=== PATIENT | female | born 1960 | race Caucasian/White ===

== ENCOUNTER → 2018-08-02 11:22 | Outpatient (CLI) | payer OTHER, SELFPAY ==
--- NOTE | 2018-08-02 | DI.RAD.S_ITS ---
PROCEDURE: XR KNEE LT 3V INDICATIONS: LEFT KNEE PAIN TECHNIQUE: 3 views of the knee were acquired. COMPARISON: None. FINDINGS: Bones: No fractures or dislocations. No suspicious bony lesions. Mild narrowing of the medial joint space. Soft tissues: Small joint effusion. No suspicious soft tissue calcifications. IMPRESSION: Mild degenerative joint disease Small joint effusion. Dictated by: Miki Campos M.D. on 08/02/2018 at 15:24 Approved by: Miki Campos M.D. on 08/02/2018 at 15:25
== END ==
PROVIDERS: Family Provider Family Medicine; PCP Family Medicine; Visit Provider Family Medicine
DX: M25.562 Pain in left knee (principal); M17.12 Unilateral primary osteoarthritis, left knee; M25.462 Effusion, left knee
CPT/HCPCS: 73562

== ENCOUNTER → 2018-10-24 11:49 | Outpatient (CLI) | payer OTHER, SELFPAY ==
--- NOTE | 2018-10-24 | DI.US.S_ITS ---
PROCEDURE: US ABDOMEN COMPLETE INDICATIONS: DIARRHEA TECHNIQUE: Real-time scanning was performed of the abdominal and retroperitoneal organs, with image documentation. COMPARISON: [facility], [place], ABDOMEN/PELVIS WITHOUT CONTRAS, 08/18/2015, 11:13. [facility], [place], ABDOMEN COMPLETE, 09/29/2015, 10:43. FINDINGS: Liver: Liver is prominent in size and homogeneous in echotexture. Gallbladder: No findings of gallstones or sludge are seen. The gallbladder wall is not thickened, measuring 3 mm or less. No specific pericholecystic fluid is seen. The sonographic Welsh sign is negative. Biliary ducts: Intrahepatic bile ducts are non-dilated. Extrahepatic bile duct caliber measures 5 mm. Normal is 6-7 mm or less in diameter, or 10 mm or less post-cholecystectomy. Pancreas: Visualized portions of the pancreas are sonographically normal. Spleen: Spleen is normal in size and homogeneous in echotexture. Kidneys: Kidneys are normal in size and echotexture. Right kidney measures 10.2 cm long; left kidney measures 10.4 cm long. No hydronephrosis or nephrolithiasis. No solid masses. The renal cortex measures within normal limits for thickness. Aorta: Visualized aorta is normal in caliber at less than 3 cm. Iliacs: Proximal common iliac arteries are normal in caliber at less than 2.5 cm. IVC: Intrahepatic inferior vena cava is patent. Miscellaneous: No free abdominal fluid. IMPRESSION: No significant ultrasound abnormality is seen. Mildly prominent liver. Dictated by: Kwaku Alvarez M.D. on 10/24/2018 at 14:11 Approved by: Kwaku Avlarez M.D. on 10/24/2018 at 14:13
== END ==
PROVIDERS: Family Provider Family Medicine; PCP Family Medicine; Visit Provider Family Medicine
DX: R19.7 Diarrhea, unspecified (principal); M81.0 Age-related osteoporosis without current pathological fracture; Z78.0 Asymptomatic menopausal state; Z87.891 Personal history of nicotine dependence; R16.0 Hepatomegaly, not elsewhere classified
CPT/HCPCS: 76700; 77080

== ENCOUNTER → 2019-04-23 07:48 | Outpatient (CLI) | payer OTHER, SELFPAY ==
--- NOTE | 2019-04-23 | DI.MG.S_ITS ---
BILATERAL DIGITAL SCREENING MAMMOGRAM 3D/2D WITH CAD: 04/23/2019 CLINICAL: Routine screening. Family history of breast cancer. Comparison is made to exams dated: 09/23/2017 mammogram, 06/25/2016 mammogram, and 11/04/2014 mammogram - [facility]. The tissue of both breasts is extremely dense, which lowers the sensitivity of mammography. Current study was also evaluated with a Computer Aided Detection (CAD) system. There are benign calcifications in both breasts. No significant masses, calcifications, or other findings are seen in either breast. There has been no significant interval change. IMPRESSION: There is no mammographic evidence of malignancy. A 1 year screening mammogram is recommended. This exam was interpreted at Station ID: [id number]. NOTE: For mammograms, a report in lay terms will be sent to the patient. Approximately 15% of breast malignancies will not be visualized mammographically. In the management of a palpable breast mass, a negative mammogram must not discourage biopsy of a clinically suspicious lesion. Electronically Signed By: Quoc zelaya/fito:04/23/2019 09:17:40 letter sent: Normal Exam ACR BI-RADS Category 2: Benign Finding(s) [id number]
== END ==
PROVIDERS: PCP Family Medicine; Visit Provider Family Medicine
DX: Z12.31 Encounter for screening mammogram for malignant neoplasm of breast (principal); Z80.3 Family history of malignant neoplasm of breast
CPT/HCPCS: 77063; 77067

== ENCOUNTER → 2020-08-25 08:39 | Outpatient (CLI) | payer OTHER, SELFPAY ==
--- NOTE | 2020-08-25 | DI.US.S_ITS ---
PROCEDURE: US ABDOMEN COMPLETE INDICATIONS: Other specified diseases of pancreas/ xr rt hip TECHNIQUE: Real-time scanning was performed of the abdominal and retroperitoneal organs, with image documentation. COMPARISON: [facility], [place], [place] ABDOMEN COMPLETE, 10/24/2018, 12:12. FINDINGS: Liver: Liver is normal in size and homogeneous in echotexture. Gallbladder: The gallbladder wall measures 2.5 mm in diameter. No stones, sludge, pericholecystic fluid, or sonographic Welsh sign. Biliary ducts: Intrahepatic bile ducts are non-dilated. Extrahepatic bile duct caliber measures 5.8 mm. Normal is 6-7 mm or less in diameter, or 10 mm or less post-cholecystectomy. Pancreas: Visualized portions of the pancreas are sonographically normal. Spleen: Spleen is normal in size and homogeneous in echotexture. Kidneys: Kidneys are normal in size and echotexture. Right kidney measures 9.6 cm long; left kidney measures 9.7 cm long. No hydronephrosis or nephrolithiasis. No solid masses. Aorta: Visualized aorta is normal in caliber at less than 3 cm. Atheromatous plaque is noted throughout the abdominal aorta. Iliacs: Proximal common iliac arteries are normal in caliber at less than 2.5 cm. IVC: Intrahepatic inferior vena cava is patent. Miscellaneous: No free abdominal fluid. IMPRESSION: 1. No cholelithiasis or findings to suggest choledocholithiasis or acute cholecystitis. Dictated by: Rere Ross M.D. on 08/25/2020 at 10:58 Approved by: Rere Ross M.D. on 08/25/2020 at 11:06
--- NOTE | 2020-08-25 | DI.RAD.S_ITS ---
PROCEDURE: XR HIP W PEL IF DONE RT 2V INDICATIONS: ELEVATED AMYLASE/ OSTEO TECHNIQUE: AP pelvis with lateral view(s) of the right hip(s). COMPARISON: [facility], [place], BONE SCAN WHOLE BODY, 10/07/2015, 14:55. [facility], [place], ABDOMEN/PELVIS WITHOUT CONTRAS, 08/18/2015, 11:13. [facility], , HIP 2V RIGHT, 08/18/2015, 11:07. FINDINGS: Bones: No fractures or dislocations. Compared to 2015 there is increased sclerosis and cystic change in the right femoral head. No subchondral collapse appreciated. Mild sclerosis of the right acetabulum compared to the left. Mild bilateral joint space narrowing of the hips. Pelvic ring appears intact. Moderate degenerative change of the pubic symphysis, similar to prior exam. No suspicious bony lesions. Soft tissues: The visualized bowel gas pattern is normal. No suspicious soft tissue calcifications. Mild heterotopic ossification inferior to the right greater trochanter. IMPRESSION: Increased sclerosis and cystic change of the right femoral head compared to 2015. This could be due to avascular necrosis. Infectious etiology cannot be excluded. Consider further evaluation with MRI or CT of the right hip for further characterization. Dictated by: John Chu M.D. on 08/25/2020 at 9:17 Approved by: John Chu M.D. on 08/25/2020 at 9:23
== END ==
PROVIDERS: PCP Family Medicine; Referring Provider Family Medicine; Visit Provider Family Medicine
DX: K86.89 Other specified diseases of pancreas (principal); M16.11 Unilateral primary osteoarthritis, right hip; R74.8 Abnormal levels of other serum enzymes
CPT/HCPCS: 73502; 76700

== ENCOUNTER → 2020-11-03 14:54 | Outpatient (CLI) | payer OTHER, SELFPAY ==
--- NOTE | 2020-11-03 | DI.MG.S_ITS ---
BILATERAL DIGITAL SCREENING MAMMOGRAM 3D/2D WITH CAD: 11/03/2020 CLINICAL: Routine screening. Family history of breast cancer. Comparison is made to exams dated: 04/23/2019 mammogram, 09/23/2017 mammogram, and 06/25/2016 mammogram - [facility]. The tissue of both breasts is extremely dense, which lowers the sensitivity of mammography. Current study was also evaluated with a Computer Aided Detection (CAD) system. There are benign calcifications in both breasts. No significant masses, calcifications, or other findings are seen in either breast. There has been no significant interval change. IMPRESSION: BENIGN There is no mammographic evidence of malignancy. A 1 year screening mammogram is recommended. This exam was interpreted at Station ID: [id number]. NOTE: For mammograms, a report in lay terms will be sent to the patient. Approximately 15% of breast malignancies will not be visualized mammographically. In the management of a palpable breast mass, a negative mammogram must not discourage biopsy of a clinically suspicious lesion. Electronically Signed By: Quoc zelaya/fito:11/03/2020 16:45:44 letter sent: Normal Exam ACR BI-RADS Category 2: Benign Finding(s) [id number]
== END ==
PROVIDERS: PCP Family Medicine; Referring Provider Family Medicine; Visit Provider Family Medicine
DX: Z12.31 Encounter for screening mammogram for malignant neoplasm of breast (principal); Z80.3 Family history of malignant neoplasm of breast; M81.0 Age-related osteoporosis without current pathological fracture; Z78.0 Asymptomatic menopausal state; Z82.62 Family history of osteoporosis; Z87.891 Personal history of nicotine dependence
CPT/HCPCS: 77063; 77067; 77080

== ENCOUNTER → 2021-01-30 08:04 | Outpatient (CLI) | payer OTHER, SELFPAY ==
--- NOTE | 2021-01-30 | DI.RAD.S_ITS ---
PROCEDURE: XR HIP W PEL IF DONE RT 2V INDICATIONS: OSTEOARTHRITIS OF HIP TECHNIQUE: AP pelvis with lateral view(s) of the right hip(s). COMPARISON: [facility], [place], HIP 2V RIGHT, 08/18/2015, 11:07. [facility], , XR HIP W PEL IF DONE RT 2V, 08/25/2020, 7:51. FINDINGS: Bones: No fractures or dislocations. Pelvic ring appears intact. Mild bilateral hip osteoarthritis. Subchondral lucencies and sclerosis noted in the right femoral head concerning for avascular necrosis. Soft tissues: The visualized bowel gas pattern is normal. No suspicious soft tissue calcifications. IMPRESSION: 1. Mild bilateral hip osteoarthritis. 2. Right femoral head chronic avascular necrosis. Dictated by: Lisa Dyer MD, PhD on 01/30/2021 at 16:57 Approved by: Lisa Dyer MD, PhD on 01/30/2021 at 17:00
== END ==
PROVIDERS: PCP Family Medicine; Referring Provider Family Medicine; Visit Provider Family Medicine
DX: M16.0 Bilateral primary osteoarthritis of hip (principal); M87.9 Osteonecrosis, unspecified
CPT/HCPCS: 73502

== ENCOUNTER 2021-06-02 18:34 | Emergency (ER) | payer OTHER, SELFPAY ==
[2021-06-02 18:42] VITALS: BP 193/88; PULSE 75; RESP 20; TEMP 36.6; O2SAT 100
--- NOTE | 2021-06-02 18:48 | DI.CT.S_ITS ---
PROCEDURE: CT HEAD/BRAIN WO CON INDICATIONS: fall TECHNIQUE: Noncontrast 4.5 mm thick angled axial sections acquired from the foramen magnum to the vertex, with coronal and sagittal reformats. For radiation dose reduction, the following was used: automated exposure control, adjustment of mA and/or kV according to patient size. COMPARISON: None. FINDINGS: Image quality: Excellent. CSF spaces: Basal cisterns are patent. No extra-axial fluid collections. Ventricles are normal in size and shape. Brain: No midline shift. No intracranial masses or hemorrhage. Carranza-white matter interface is normal. Skull and face: Calvarium and visualized facial bones are intact, without suspicious lesions. Sinuses: Visualized sinuses and mastoids are clear. IMPRESSION: No trauma found. Dictated by: Kevin Estrella M.D. on 06/02/2021 at 19:14 Approved by: Kevin Estrella M.D. on 06/02/2021 at 19:15
--- NOTE | 2021-06-02 18:48 | DI.CT.S_ITS ---
PROCEDURE: CT CERVICAL SPINE WO CON INDICATIONS: fall TECHNIQUE: Noncontrast 3 mm thick sections acquired from the skull base to the T4 level. Sagittal and coronal reformats were then constructed. For radiation dose reduction, the following was used: automated exposure control, adjustment of mA and/or kV according to patient size. COMPARISON: None. FINDINGS: Image quality: Excellent. Bones: No fractures or dislocations. Visualized superior ribs are intact. Soft tissues: Prevertebral soft tissues are normal in thickness. No paravertebral hematomas. No apical pneumothoraces. IMPRESSION: No trauma. Dictated by: Kevin Estrella M.D. on 06/02/2021 at 19:13 Approved by: Kevin Estrella M.D. on 06/02/2021 at 19:14
--- NOTE | 2021-06-02 20:14 | ED.FALL ---
HPI - Fall General Chief Complaint: Fall Stated Complaint: FELL OFF A RETAINING WALL, HIT HEAD ON SIDEWALK Time Seen by Provider: 06/02/21 19:37 Source: patient and family Mode of arrival: Ambulatory History of Present Illness HPI Narrative: 60-year-old woman with a history of hyperlipidemia was out doing yd work and fell backwards landing on her head from an approximate 8 ft retaining wall. No loss of consciousness but she was initially somewhat stunned and took a few minutes to get up off the ground. She was able to walk and did transport herself to the emergency department. She describes some point pain the right side of her head where there was some bleeding a but no specific headache or other specific pain. Related Data Home Medications Medication Instructions Recorded Confirmed ospemifene 60 mg tablet (Osphena) 60 mg PO #0 03/28/17 Previous Rx's Medication Instructions Recorded estradiol 10 mcg vaginal tablet 10 mcg VG Q DAY #30 tab 11/21/17 (Vagifem) C-Estriol 0.2% vaginal cream See Rx Instructions VAGINAL 04/22/21 .COMPLEX #30 gram Allergies Allergy/AdvReac Type Severity Reaction Status Date / Time Penicillins [PENICILLINS] AdvReac Intermediate nausea Unverified 01/25/18 11:59 Review of Systems Review of Systems Narrative: Pertinent positive and negative findings as per HPI Remainder of review of systems is otherwise unremarkable for Constitutional: Fevers, chills, weakness ENT: No sore throat, neck pain, ear pain CV: Chest pain, palpitations, Respiratory: Cough, wheeze, dyspnea GI: Nausea, vomiting, diarrhea, : Dysuria, hematuria, Patient History Surgical History (Updated 02/14/18 @ 05:33 by Conversion Provider) Status post delivery Social History Smoking Status: Never smoker Smoking Status: Never smoker Exam Narrative Exam Narrative: General: Healthy appearing, in no acute distress. Able to give a complete and coherent history. Well-nourished well-developed HEENT: Moist mucous membranes, normal sclera with reactive pupils, wound to the right occipital area 3 cm in length full-thickness without bone visible bleeding is controlled Neck: No JVD, supple, no midline tenderness Chest: No chest wall tenderness no clavicular tenderness no subcutaneous air Respiratory: Lungs are clear to auscultation, no wheezing no rales no rhonchi. Full and symmetrical air movement Cardiac: Regular rate and rhythm no murmurs no bruits Abdomen: Soft, nontender, good bowel tones, no flank pain Spine: No tenderness down the thoracic or lumbar spine. No tenderness with pelvic ring manipulation Skin: Warm and dry, no rashes Neurologic: Grossly neurologically intact with no obvious asymmetries or abnormalities Extremities: No trauma, well perfused Psych: Cooperative, appropriate insight and affect Initial Vital Signs Initial Vital Signs: Vital Signs Temperature 97.8 F 06/02/21 18:42 Pulse Rate 75 06/02/21 18:42 Respiratory Rate 20 06/02/21 18:42 Blood Pressure 193/88 H 06/02/21 18:42 Pulse Oximetry 100 06/02/21 18:42 Procedures Laceration Repair Right occipital scalp: Site: scalp Side (If applicable): right Size (cm): 7 Description: linear and clean Depth: simple, single layer Local Anesthetic: lidocaine 1% and with bicarb Amount of anesthesia used (mL): 10 Pre-repair: wound explored Skin layer closed with: uyen Number of sutures: 7 Course Orders Ordered: Discontinued Medications Lidocaine/Sodium Bicarbonate (Lido 1%/Sod Bicarb 8.4% (10ml) 10 Ml Syringe) 10 ml INJ NOW ONE Stop: 06/02/21 20:25 Last Admin: 06/02/21 20:27 Dose: 10 ml Documented by: DUSTIN Vital Signs Vital signs: Vital Signs - 8 hr 06/02/21 18:42 Temperature 97.8 F Pulse Rate 75 Respiratory Rate 20 Blood Pressure 193/88 H Pulse Oximetry 100 MDM - Fall Imaging Data CT scan - head: Radiologist's Impression: FINDINGS: Image quality: Excellent. CSF spaces: Basal cisterns are patent. No extra-axial fluid collections. Ventricles are normal in size and shape. Brain: No midline shift. No intracranial masses or hemorrhage. Carranza-white matter interface is normal. Skull and face: Calvarium and visualized facial bones are intact, without suspicious lesions. Sinuses: Visualized sinuses and mastoids are clear. IMPRESSION: No trauma found. Dictated by: Kevin Estrella M.D. on 06/02/2021 at 19:14 CT - cervical spine: Radiologist's Impression: FINDINGS: Image quality: Excellent. Bones: No fractures or dislocations. Visualized superior ribs are intact. Soft tissues: Prevertebral soft tissues are normal in thickness. No paravertebral hematomas. No apical pneumothoraces. IMPRESSION: No trauma. Dictated by: Kevin Estrella M.D. on 06/02/2021 at 19:13 Discharge Plan Departure Patient Disposition: Home Clinical Impression: Laceration Concussion Qualifiers: Encounter type: initial encounter Loss of consciousness presence/duration: without LOC Qualified Code(s): S06.0X0A - Concussion without loss of consciousness, initial encounter Fall Qualifiers: Encounter type: initial encounter Qualified Code(s): W19.XXXA - Unspecified fall, initial encounter Instructions: DI for Laceration Repair -- Uyen Activity Restrictions/Additional Instructions: Thank you for coming in tonight The CT scan of your head and her cervical spine were reassuring. There is no skull fractures, no cervical spine fractures and no bleeding inside her head. By definition without heart of a hit you do have a concussion. There are 5 uyen to the laceration on the right side of your head. These need to be removed on or about June 12. Please expect to hurt more all over over the next couple of days. If you find new areas of injury that we did not fully assess this evening, please feel free to return to the ER When you get home, please take a nice long shower to get all of the blood out of your hair. It is okay to get the staple line wet but I would not recommend shampoo tonight. Using 400 mg of ibuprofen (2 [id number] pills) and 1 Tylenol every 6 hours can be very helpful in controlling pain. I wish you the best Prescriptions: No Action ospemifene [Osphena] 60 MG tablet 60 mg PO Qty: 0 RF: 0 estradiol [Vagifem] 10 MCG tablet 10 mcg VG Q DAY Qty: 30 RF: 3 C-Estriol 0.2% vaginal cream See Rx Instructions Vaginal .COMPLEX Qty: 30 RF: 3 Referrals: Ludwin Ventura MD [Primary Care Provider] -
[2021-06-02] MEDS: LIDO 1%/SOD BICARB 8.4% (10ML) 10 ML SYRINGE INJ (20:27)
[2021-06-02 21:43] VITALS: BP 140/80
[2021-06-02 21:45] VITALS: PULSE 80; RESP 16; O2SAT 99
== END 2021-06-02 21:45 | disposition home or self-care (01) ==
PROVIDERS: Emergency Provider Emergency Medicine; PCP Family Medicine
DX: S06.0X0A Concussion without loss of consciousness, initial encounter (principal); S01.01XA Laceration without foreign body of scalp, initial encounter; W19.XXXA Unspecified fall, initial encounter
CPT/HCPCS: 12002; 70450; 72125; 99284

== ENCOUNTER → 2021-09-18 09:28 | Outpatient (CLI) | payer OTHER, SELFPAY ==
[2021-09-18 10:56] LABS: COVID19 -Nasal RAPID Negative (Negative)
== END ==
PROVIDERS: PCP Family Medicine; Visit Provider Surgery
DX: Z01.812 Encounter for preprocedural laboratory examination (principal); Z20.822 Contact with and (suspected) exposure to COVID-19
CPT/HCPCS: 87635; C9803

== ENCOUNTER 2021-09-21 09:29 | Day surgery (SDC) | payer OTHER, SELFPAY ==
[2021-09-21] VITALS (7 sets, daily range): BP systolic 99–137; BP diastolic 59–99; PULSE 57–66; RESP 10–16; TEMP 36–36.6; O2SAT 98–100; BMI 21.4
[2021-09-21] MEDS: LACTATED RINGERS 1,000 ML 200 ML IV (09:45)
--- NOTE | 2021-09-21 10:32 | PM.HP.1 ---
History of Present Illness History of Present Illness Date Patient Seen: 09/21/21 Time Patient Seen: 10:32 Chief complaint: SDC Narrative: The patient presents for colorectal screening. She had a previous colonoscopy 5 years ago which was normal. Her father of colon cancer. No personal history of colon cancer. She has had diarrhea for the past several years it is thought that she has pancreatic insufficiency perhaps. No nausea, vomiting, abdominal pain, loss of appetite, constipation, melena, hematochezia, or bright red blood per rectum. Patient History Surgical History Status post delivery Family & Social History Social History: household members spouse Tobacco & Substance use: Smoking Status Never smoker alcohol intake never Substance Use Type does not use Meds Home Medications and Allergies Home Medications Medication Instructions Recorded Confirmed Type estradiol 10 mcg vaginal tablet 10 mcg VG Q DAY #30 tab 11/21/17 Rx (Vagifem) sodium,potassium,mag sulfates 17.5 See Rx Instructions PO .COMPLEX 09/03/21 09/21/21 Rx gram-3.13 gram-1.6 gram oral soln #354 ml (Suprep Bowel Prep Kit) C-Estriol 0.2% vaginal cream See Rx Instructions VAGINAL 09/18/21 09/21/21 Rx .COMPLEX #30 gram rosuvastatin 5 mg tablet 5 mg PO BEDTIME 09/21/21 09/21/21 History Allergies Allergy/AdvReac Type Severity Reaction Status Date / Time bee venom protein (honey bee) Allergy Intermediate Hives Verified 09/21/21 09:40 Penicillins [PENICILLINS] AdvReac Intermediate nausea Verified 09/21/21 09:44 Exam Vital Signs (past 8 hours): - 09/21/21 09:50 Temperature 96.8 F L Pulse Rate 66 Respiratory Rate 16 Blood Pressure 135/99 H Pulse Oximetry 100 Oxygen Delivery Method Room Air Narrative Exam Narrative: Constitutional-She is oriented to person, place and time. No apparent distress Cardiovascular- regular rate, no peripheral edema Pulmonary-unlabored respiratory effort, no audible wheezing Abdominal-soft, non-tender, non-distended Musculoskeletal-no cyanosis or clubbing Neurological-nonfocal, normal strength throughout Skin-warm and dry Assessment & Plan Assessment and plan (1) Screening for colon cancer: Status: Acute Assessment & Plan narrative: The patient requires colorectal screening and colonoscopy is recommended. Technical details were discussed. Risks, benefits, alternatives explained. Risks including but not limited to myocardial infarction, aspiration, bleeding, pain, missed lesion, incomplete examination, need for further radiographic studies, colonic perforation, and need for major abdominal surgery were discussed. All questions were answered to their satisfaction, and they are in agreement with this plan. Time Spent With Patient Critical Care time: I spent a total of [] minutes of critical care time on this patient's care today; this time is exclusive of procedural time.
[2021-09-21] MEDS: fentaNYL 250 MCG/5 ML INJ IV (10:41)
[2021-09-21] MEDS: MIDAZOLAM 5 MG/5 ML VIAL IV (10:41)
--- NOTE | 2021-09-21 10:56 | P.OP.COLON_ITS ---
Operative Date/Time/Diagnoses Date of procedure: 09/21/21 Time of procedure: 10:56 Pre-op diagnosis: screening colonoscopy Post-op diagnosis: same Procedure & Clinicians Study performed: colonoscopy Same procedure as scheduled: Yes Indications: family history of colon cancer Surgeon: Denzel Don Procedure Notes Procedure in detail: Medications: Conscious sedation using 5mg IV midazolam and 150mcg IV of fentanyl The history and physical was performed/updated and the patient is ASA class is 2. The procedure was discussed in detail with the patient. Potential risks complications including infection, bleeding, missed diagnosis, perforation, need for surgery, and were explained. Their questions were answered and informed consent was obtained. Patient was brought to the procedure room and placed standard monitoring equip ment. The patient's vital signs were monitored continuously throughout the entire procedure. Prior to starting time-out was performed. The patient was placed in the left lateral recumbent position. Procedural sedation was administered. Examination began with a thorough inspection of the perianal area there was no evidence of fissures, fistulae, external hemorrhoids or cutaneous malignancy. The colonoscopy scope was then placed into the anal canal and was advanced to the cecum, which was identified by the ileocecal valve, the appendiceal orifice and the confluence of the taenia. The scope was then slowly withdrawn examining colon thoroughly in all directions, irrigating it of any residual stool. FINDINGS 1. No masses polyps or inflammation 2. Normal healthy-appearing colon The patient tolerated the procedure well. They will be discharged once criteria are met. The prep was of good/excellent quality. The withdrawl time was 7 minutes. The sedation time was 17 minutes. Specimen(s): none sent Complications: none Impression: Normal colonoscopy Post-procedure Recommendations: Colonoscopy in 5 years Disposition: same day surgery
== END 2021-09-21 11:55 | disposition home or self-care (01) ==
PROVIDERS: PCP Family Medicine; Referring Provider Surgery; Visit Provider Surgery
PROC: 0DJD8ZZ Inspection of Lower Intestinal Tract, Via Natural or Artificial Opening Endoscopic (ICD-10-PCS; CPT 45378; principal; 2021-09-21 10:45)
DX: Z12.11 Encounter for screening for malignant neoplasm of colon (principal)
CPT/HCPCS: 45378; 99152; J2250; J3010

== ENCOUNTER → 2022-08-07 08:56 | Outpatient (CLI) | payer OTHER, SELFPAY ==
--- NOTE | 2022-08-07 08:57 | DI.MG.S_ITS ---
BILATERAL DIGITAL SCREENING MAMMOGRAM 3D/2D WITH CAD: 08/07/2022 CLINICAL: Routine screening. Family history of breast cancer. Comparison is made to exams dated: 11/03/2020 mammogram, 04/23/2019 mammogram, and 09/23/2017 mammogram - [facility]. Both breasts are extremely dense, which lowers the sensitivity of mammography (category d />75% glandular tissue). Current study was also evaluated with a Computer Aided Detection (CAD) system. There are benign calcifications in both breasts. No significant masses, calcifications, or other findings are seen in either breast. There has been no significant interval change. IMPRESSION: BENIGN There is no mammographic evidence of malignancy. A 1 year screening mammogram is recommended. Based on Tyrer-Cuzick model (a risk assessment model), the patient's lifetime risk is 41.5% and her 10 year risk is 18.1%. If a patient has an elevated risk, a more comprehensive evaluation should be considered and/or a referral to a genetic counselor. The [place] [employer], [place] [employer], and NCCN Guidelines advise the consideration of Breast MRI as an adjunct to screening mammography in patients whose Lifetime risk to develop breast cancer is 20% or higher. This exam was interpreted at Station ID: [id number]. NOTE: For mammograms, a report in lay terms will be sent to the patient. Approximately 15% of breast malignancies will not be visualized mammographically. In the management of a palpable breast mass, a negative mammogram must not discourage biopsy of a clinically suspicious lesion. Electronically Signed By: Quoc zelaya/fito:08/09/2022 16:59:15 letter sent: Normal Exam ACR BI-RADS Category 2: Benign Finding(s) [id number]
== END ==
PROVIDERS: PCP Family Medicine; Referring Provider Family Medicine; Visit Provider Family Medicine
DX: Z12.31 Encounter for screening mammogram for malignant neoplasm of breast (principal); Z80.3 Family history of malignant neoplasm of breast
CPT/HCPCS: 77063; 77067

== ENCOUNTER → 2023-01-05 18:34 | Outpatient (CLI) | payer OTHER, SELFPAY ==
--- NOTE | 2023-01-05 | DI.MRI.S_ITS ---
PROCEDURE: MR KNEE RT WO CON INDICATIONS: RIGHT KNEE AND HIP PAIN TECHNIQUE: Noncontrast sagittal PD fast spin echo and T2 fast spin echo with fat saturation, sagittal 3-D FLASH with fat saturation; coronal T1 spin echo and PD fast spin echo with fat saturation, and axial PD fast spin echo with fat saturation through the knee. COMPARISON: None. FINDINGS: Image quality: Excellent. Menisci: There is mild amorphous high signal intensity within the middle and inner thirds of the medial meniscal body, demonstrating superior and inferior articular surface extension, indicating degenerative fraying. Linear horizontal high T2 signal intensity within the inner and middle thirds of the lateral meniscal body and posterior horn, demonstrating inferior articular surface extension is present. Cruciate ligaments: The anterior and posterior cruciate ligaments appear intact. Medial structures: The medial collateral ligament appears intact. Visualized portions of the pes anserinus tendons appear normal. No abnormal bursal fluid. Lateral structures: The lateral collateral ligament, long and short heads of the biceps femoris tendon appear intact. The popliteus tendon appears normal. Iliotibial band appears normal. Anterior structures: The quadriceps and patellar tendons appear intact. There is mild T2 signal elevation within the quadriceps and patellar tendons at the patellar insertion sites. Patellar alignment is normal. No femoral trochlear dysplasia or ventral trochlear prominence. No edema in the infrapatellar fat pad. Bones and cartilage: No bone marrow contusions or fractures. Mild ill-defined T2 signal elevation within the central aspect of the distal femur, the central tibial plateau, as well as the medial patellar apex, consistent with degenerative marrow edema. There is moderate articular cartilage loss diffusely overlying the weight-bearing aspects of the medial femoral condyle and medial tibial plateau. Mild articular cartilage loss overlies the medial and lateral patellar facets. Superimposed high-grade articular cartilage loss overlies the medial patellar apex. Joint space: There is a small knee joint effusion. No Alan's cyst. Normal appearing synovial plicae are incidentally noted. IMPRESSION: 1. Tricompartmental osteoarthritis with associated articular cartilage loss. 2. Medial and lateral meniscal tearing. 3. Mild quadriceps and patellar tendinopathy. 4. Small knee joint effusion. Dictated by: Nate Moore M.D. on 01/06/2023 at 9:19 Approved by: Nate Moore M.D. on 01/06/2023 at 9:21
--- NOTE | 2023-01-05 | DI.MRI.S_ITS ---
PROCEDURE: MR HIP RT WO CON INDICATIONS: RIGHT KNEE AND HIP PAIN TECHNIQUE: Noncontrast coronal T1 spin echo and STIR through the bony pelvis. Coronal and axial T2 fast spin echo with fat saturation, sagittal T1 spin echo, and oblique axial T2 fast spin echo with fat saturation through the hip. COMPARISON: CR, XR HIP W PEL IF DONE RT 2V, 08/25/2020, 7:51. [facility], MR, HIP WITHOUT CONTRAST, 07/12/2013, 8:00. FINDINGS: Image quality: Excellent. Bones and joints: A vascular necrosis within the right femoral head is present, as before, slightly increased in size, and demonstrating a more cystic appearance, measuring roughly 33 mm craniocaudal by 25 mm transverse. No significant subchondral collapse left femoral head is within normal limits. There is mild ill-defined T2 signal elevation within the bilateral iliac wings posteriorly adjacent to the sacroiliac joints.. The visualized lower lumbar spine appears normally aligned. Tendons and ligaments: The gluteus medius and minimus tendons appear intact, without associated muscle atrophy. Mild T2 signal elevation at the femoral insertion sites of the left gluteus medius and minimus tendons. The nearby proximal iliotibial band also appears intact. The iliopsoas tendon appears intact, without adjacent bursal fluid collections or evidence for impingement syndrome. The origin of the hamstring tendon is intact at the ischial tuberosity, as well as the associated sacrotuberous ligament. The straight and reflected heads of the rectus femoris muscle origin appear intact, as well as the conjoint tendon. The ligamentum teres appears intact where visualized. Labrum and cartilage: Diffuse undercutting of the left hip labrum. Cartilage surface of the femoral head appears of normal thickness. The alpha angle of the femur is within normal limits at less than 55 degrees. Soft tissues: Visualized muscles demonstrate normal bulk and internal signal. Quadratus femoris muscle demonstrates no internal edema to suggest ischiofemoral impingement. The proximal sciatic neurovascular bundle appears normal adjacent to the hamstring tendons. No free pelvic fluid. Bladder wall thickness is normal. Genitourinary structures and bowel loops appear normal where visualized. IMPRESSION: 1. Progressive right femoral head avascular necrosis. 2. Left hip labral tearing. 3. Insertional tendinitis of the left gluteus medius and minimus tendons. 4. Suboptimally visualized STIR signal elevation within the posterior iliac wings, possibly secondary to sacroiliitis. Dictated by: Nate Moore M.D. on 01/06/2023 at 8:50 Approved by: Nate Moore M.D. on 01/06/2023 at 8:53
== END ==
PROVIDERS: PCP Family Medicine; Referring Provider Family Medicine; Visit Provider Family Medicine
DX: M23.51 Chronic instability of knee, right knee (principal); S73.102A Unspecified sprain of left hip, initial encounter; M76.02 Gluteal tendinitis, left hip; M87.852 Other osteonecrosis, left femur; M17.12 Unilateral primary osteoarthritis, left knee; S83.242A Other tear of medial meniscus, current injury, left knee, initial encounter; S83.282A Other tear of lateral meniscus, current injury, left knee, initial encounter; M25.462 Effusion, left knee
CPT/HCPCS: 73721

== ENCOUNTER → 2023-09-22 14:56 | Outpatient (CLI) | payer OTHER, SELFPAY ==
--- NOTE | 2023-09-22 | DI.US.S_ITS ---
PROCEDURE: US PELVIC COMPLETE INDICATIONS: ABDOMINAL PAIN;OVARIAN CYST TECHNIQUE: Real-time scanning was performed of the pelvic organs, with image documentation. Additional endovaginal scanning was necessary due to incomplete visualization of the adnexal and endometrial structures by transabdominal scanning. COMPARISON: [facility], US, PELVIC COMPLETE, 06/25/2016, 8:09. FINDINGS: Uterus: Uterus is anteverted and normal in size at 8.3 x 4.7 x 2.9 cm. The myometrium is heterogeneous. The endometrium measures 2 mm combined thickness. Ovaries: The right ovary measures 1.7 x 1.8 x 0.9 cm, with a calculated ovarian volume of 1.4 cc. The left ovary measures 2.4 x 2.2 x 1.6 cm, with a calculated ovarian volume of 4.4 cc. The ovaries have a normal sonographic appearance. Less than 12 follicles can be seen in each ovary. No adnexal masses are seen. There is a simple 1.4 x 1.2 x 1.4 cm cyst within the left ovary. Other: No pathologic free abdominal or pelvic fluid. IMPRESSION: 1. Left ovarian cyst. Annual sonographic follow-up is recommended for cysts greater than 1 cm in postmenopausal patients. We strive to produce accurate, complete, and clear reports of imaging services. To assist us in improving patient care, this report was composed using standard report templates and voice recognition software. Therefore, it may contain abnormal punctuation, insertions and/or omissions. Occasional wrong-word or sound-alike substitutions may occur. Though we review the report and make efforts to correct it, we do recommend that the report be read carefully in proper context to recognize any text inaccuracies. Dictated by: Rere Ross M.D. on 09/22/2023 at 18:02 Approved by: Rere Ross M.D. on 09/22/2023 at 18:05
--- NOTE | 2023-09-22 | DI.US.S_ITS ---
PROCEDURE: US ABDOMEN LIMITED INDICATIONS: ABDOMINAL PAIN;OVARIAN CYST TECHNIQUE: Real-time scanning was performed of the abdominal and retroperitoneal organs, with image documentation. COMPARISON: [facility], US, US PELVIC COMPLETE, 09/22/2023, 15:49. [facility], US, US ABDOMEN COMPLETE, 08/25/2020, 9:58. FINDINGS: Liver: The liver measures 14.9 cm in length and demonstrates slightly increased echogenicity. The portal vein is patent. Gallbladder: The gallbladder wall measures 2 mm in diameter and is slightly contracted. No stones, sludge, pericholecystic fluid, or sonographic Welsh sign. Biliary ducts: Intrahepatic bile ducts are non-dilated. Extrahepatic bile duct caliber measures 3 mm. Normal is 6-7 mm or less in diameter, or 10 mm or less post-cholecystectomy. Pancreas: Visualized portions of the pancreas are sonographically normal. IMPRESSION: 1. Increased hepatic echogenicity noted likely related to fatty infiltration of the liver but other sources of hepatocellular disease cannot be excluded. 2. No cholelithiasis or findings to suggest choledocholithiasis or acute cholecystitis. Dictated by: Rere Ross M.D. on 09/22/2023 at 17:43 Approved by: Rere Ross M.D. on 09/22/2023 at 17:44
== END ==
PROVIDERS: PCP Family Medicine; Referring Provider Family Medicine; Visit Provider Family Medicine
DX: R10.9 Unspecified abdominal pain (principal); K86.89 Other specified diseases of pancreas; N83.202 Unspecified ovarian cyst, left side
CPT/HCPCS: 76705; 76856

== ENCOUNTER → 2023-10-18 07:51 | Outpatient (CLI) | payer OTHER, SELFPAY ==
--- NOTE | 2023-10-18 | DI.MG.S_ITS ---
BILATERAL DIGITAL SCREENING MAMMOGRAM 3D/2D WITH CAD: 10/18/2023 CLINICAL: Routine screening. Family history of breast cancer. Comparison is made to exams dated: 08/07/2022 mammogram, 11/03/2020 mammogram, and 04/23/2019 mammogram - [facility]. Both breasts are heterogeneously dense, which may obscure small masses (category c / 51-75% glandular tissue). Current study was also evaluated with a Computer Aided Detection (CAD) system. No significant masses, calcifications, or other findings are seen in either breast. There has been no significant interval change. IMPRESSION: NEGATIVE There is no mammographic evidence of malignancy. A 1 year screening mammogram is recommended. Based on Tyrer-Cuzick model (a risk assessment model), the patient's lifetime risk is 28.5% and her 10 year risk is 12.7%. If a patient has an elevated risk, a more comprehensive evaluation should be considered and/or a referral to a genetic counselor. The [employer] [employer], [employer], and NCCN Guidelines advise the consideration of Breast MRI as an adjunct to screening mammography in patients whose Lifetime risk to develop breast cancer is 20% or higher. This exam was interpreted at Station ID: [id number]. NOTE: For mammograms, a report in lay terms will be sent to the patient. Approximately 15% of breast malignancies will not be visualized mammographically. In the management of a palpable breast mass, a negative mammogram must not discourage biopsy of a clinically suspicious lesion. Electronically Signed By: Zaira chandra/fito:10/18/2023 10:24:19 letter sent: Normal Exam ACR BI-RADS Category 1: Negative [id number]
== END ==
PROVIDERS: PCP Family Medicine; Referring Provider Family Medicine; Visit Provider Family Medicine
DX: Z12.31 Encounter for screening mammogram for malignant neoplasm of breast (principal); Z80.3 Family history of malignant neoplasm of breast
CPT/HCPCS: 77063; 77067

== ENCOUNTER 2024-09-22 16:59 | Emergency (ER) | payer OTHER, SELFPAY ==
[2024-09-22 17:01] VITALS: BP 132/79; PULSE 83; RESP 16; TEMP 36.7; O2SAT 100; BMI 21.2
--- NOTE | 2024-09-22 17:14 | ED_ITS ---
<Statement entered by Shane Ko, DO - 09/22/24 19:18> Dr. Ko: I was immediately available in the department for consultation. Documentation has been reviewed. I agree with assessment and plan. HPI - Extremity Injury (Lower) General Chief Complaint: Extremity Injury, Lower Stated Complaint: severe ankle pain Time Seen by Provider: 09/22/24 17:14 History of Present Illness HPI Narrative: Ms. White is a pleasant 64-year-old female with a past medical history of hyperlipidemia who presents to the emergency department for acute medial right ankle pain that occurred approximately 2 hours prior to arrival. patient states she was working on her truck when she developed medial right ankle pain suddenly while standing. Denies history of ankle pain or ankle problems. Denies any rolling or crushing injury. States that she now has severe pain on the medial aspect of the right ankle and also the base of the right foot. She took a 5 mg hydrocodone-acetaminophen prior to arrival which did not improve her pain. States that the pain is continuing to get worse. Pain did not improve with heat or ice therapy. Denies fevers, chills, leg pain, calf pain, direct injury, color change of foot, history of DVTs. Related Data Home Medications Medication Instructions Recorded Confirmed rosuvastatin 5 mg tablet 5 mg PO BEDTIME 09/21/21 11/17/21 Previous Rx's Medication Instructions Recorded CMP Estriol 0.2% vaginal cream See Rx Instructions vaginal 11/17/21 .COMPLEX #30 grams Allergies Allergy/AdvReac Type Severity Reaction Status Date / Time bee venom protein (honey bee) Allergy Intermediate Hives Verified 11/17/21 16:35 Penicillins [PENICILLINS] AdvReac Intermediate nausea Verified 11/17/21 16:35 Review of Systems Review of Systems ROS Unobtainable: All systems reviewed & are unremarkable except as noted in HPI and below Patient History Surgical History Anesthesia History of hand surgery (~2020) Status post delivery Family History Father Cancer Brother Cancer Social History household members: spouse Smoking Status: Never smoker alcohol intake: never Smoking Status: Never smoker Exam Narrative Exam Narrative: GENERAL: 64 year old patient appears stated age. Well-developed patient, in mild distress sitting in wheelchair. HEAD: Atraumatic. Normocephalic. EYES: Extraocular motions intact. No scleral icterus. No injection or drainage. ENT: Nose without bleeding, purulent drainage. NECK: Trachea midline. Cervical ROM intact. CARDIOVASCULAR: Regular rate RESPIRATORY: Nonlabored respirations. Speaking in clear, full sentences. EXTREMITIES: No edema of lower extremities. Tenderness to palpation of right medial malleolus and dorsal medial foot and subjective pain of the plantar aspect of the foot. No overlying skin changes or deformities. Strong bilateral DP and PT pulses. Both feet are same temperature and color with brisk capillary refill. NEURO: AOx3. Clear speech. Moves all 4 extremities appropriately. SKIN: No rash or erythema of visible areas Initial Vital Signs Initial Vital Signs: Vital Signs Temperature 98.0 F 09/22/24 17:01 Pulse Rate 83 09/22/24 17:01 Respiratory Rate 16 09/22/24 17:01 Blood Pressure 132/79 09/22/24 17:01 Pulse Oximetry 100 09/22/24 17:01 Oxygen Delivery Method Room Air 09/22/24 17:01 Course Orders Ordered: ED Orders 09/22/24 17:22 XR ankle RT min 3V Stat XR foot RT min 3V Stat Discontinued Medications Ibuprofen (Ibuprofen 400 Mg Tablet) 400 mg PO NOW ONE Stop: 09/22/24 17:23 Last Admin: 09/22/24 17:30 Dose: 400 mg Lidocaine (Lidocaine 5% Patch) 1 each TOP NOW ONE Stop: 09/22/24 17:23 Last Admin: 09/22/24 17:30 Dose: 1 each Oxycodone HCl (Oxycodone Ir 5 Mg Tablet) 5 mg PO NOW ONE Stop: 09/22/24 17:23 Last Admin: 09/22/24 17:30 Dose: 5 mg Oxycodone/Acetaminophen (Oxycodone/Apap 5/325 Prepack) 1 bottle MISC DIRECTED ONE Stop: 09/22/24 19:11 Vital Signs Vital signs: Vital Signs - 8 hr 09/22/24 17:01 Temperature 98.0 F Pulse Rate 83 Respiratory Rate 16 Blood Pressure 132/79 Pulse Oximetry 100 Oxygen Delivery Method Room Air MDM - Extremity Injury (Lower) MDM Narrative Medical decision making narrative: 64-year-old female with a past medical history of hyperlipidemia presents to the emergency department for acute nontraumatic right ankle pain. Her is here and contributes to the history. Differential diagnosis includes but is not limited to gout, muscle spasm, arterial occlusion, arthritis, sprain, tarsal tunnel syndrome, etc. On exam the patient is in mild distress secondary to her right ankle pain. She was standing when the pain occurred. No fevers, chills, systemic symptoms, no history of gout. Bilateral feet are neurovascularly intact with equal and strong pulses, good sensation. Patient is tender to palpation of the right medial malleolus and surrounding area. We will obtain x-ray of the foot and ankle to rule out underlying bony abnormality. We will treat severe pain with oxycodone and ibuprofen and topical lidocaine patch. Patient's pain improved significantly. She still has some tenderness on the anterior medial aspect of the ankle and midfoot. Her right foot remained neurovascularly intact. X-rays were printed and reviewed with the patient and reveal no acute bony abnormality. After shared decision-making with the patient, recommended follow up with Podiatry, ibuprofen and Tylenol, she was provided with 4 oxycodone-acetaminophen pills if needed for extreme severe pain at home. Discussed risks of opioid pain medications. Right ankle was Antonio wrapped. Patient declines the need for crutches. Patient and her verbalized understanding of all information are agreeable to the plan, patient stable for discharge. ER return precautions discussed. Discharge Plan Departure Patient Disposition: Home Clinical Impression: Acute right ankle pain Instructions: DI for Ankle Pain Activity Restrictions/Additional Instructions: Please take Ibuprofen (Motrin/Advil) or Acetaminophen (Tylenol) for pain. These are available over the counter. You may take Ibuprofen 600 mg every 8 hours with food for pain. You may also take Acetaminophen 650 mg every 4-6 hours for pain. Do not exceed 3000 mg of Tylenol a day as this can cause liver damage. Do not drink alcohol with either of these medications. Please use RICE therapy for your pain in addition to ibuprofen/acetaminophen. Rest the painful area. Ice the area of pain/swelling for at least 15 minutes, 4x a day. Compress the area of swelling using a brace, wrap, or splint if applied. Elevate the painful or swollen extremity by supporting it above the level of the heart with pillows when sitting or laying. You have been prescribed a short course of narcotic medications. These are potentially dangerous and addictive medications that should be used carefully. While on these medications you cannot drive or operate heavy machinery. Additionally, you cannot sign legal documents or perform any duties such as this. Many people get constipated on narcotic medications so it would be advisable to discuss stool softeners with the pharmacist when you picker packer your prescription. Please understand that we cannot provide further refills of narcotics or controlled substances through the ED and your pain management will need to be through your Primary Care Provider Please follow up with your primary care doctor within the next 2-3 days for ER follow-up. You may also follow up with [facility] for further evaluation. (If you do not have a PCP you can call [phone]. to schedule an appointment with an [facility] Primary Care Provider) IF YOU DEVELOP ANY NEW OR WORSENING SYMPTOMS, RETURN TO THE ER! Please read the attached instructions, they highlight more specific treatments and interventions for you at home. Thank you for letting me participate in your care, Florencia Lynch PA-C Prescriptions: No Action CMP Estriol 0.2% vaginal cream See Rx Instructions Vaginal .COMPLEX Qty: 30 3RF Dose Instruction: Vaginal DIRECTED; Rx Instructions: insert 2 twist/click (0.5gms) vaginal once weekly rosuvastatin 5 mg tablet 5 mg PO BEDTIME Referrals: Ludwin Ventura MD [Primary Care Provider] - Stand Alone Forms: Patient Portal/API/Survey
--- NOTE | 2024-09-22 17:22 | DI.RAD.S_ITS ---
PROCEDURE: XR FOOT RT MIN 3V INDICATIONS: nontraumatic plantar pain/medial ankle pain TECHNIQUE: 2 views of the foot were acquired. COMPARISON: None. FINDINGS: Bones: No fractures or dislocations. No suspicious bony lesions. Soft tissues: No tibiotalar joint effusion. Achilles tendon appears normal. IMPRESSION: No acute bony abnormality. Approved by: Oscar Lockhart M.D. on 09/22/2024 at 17:55
--- NOTE | 2024-09-22 17:22 | DI.RAD.S_ITS ---
PROCEDURE: XR ANKLE RT MIN 3V INDICATIONS: nontraumatic medial pain TECHNIQUE: 3 views of the ankle were acquired. COMPARISON: None. FINDINGS: Bones: No fractures or dislocations. Ankle mortise is normally aligned. No suspicious bony lesions. Soft tissues: No tibiotalar joint effusion. Achilles tendon appears normal. IMPRESSION: No acute bony abnormality or significant effusion. Approved by: Oscar Lockhart M.D. on 09/22/2024 at 17:53
[2024-09-22] MEDS: LIDOCAINE 5% PATCH 1 EACH TOP (17:30)
[2024-09-22] MEDS: OXYCODONE IR 5 MG TABLET PO (17:30)
[2024-09-22] MEDS: IBUPROFEN 400 MG TABLET PO (17:30)
[2024-09-22] MEDS: OXYCODONE/APAP 5/325 PREPACK 1 BOTTLE MISC (19:16)
== END 2024-09-22 19:23 | disposition home or self-care (01) ==
PROVIDERS: Emergency Provider Physician Assistant; PCP Family Medicine
DX: M25.571 Pain in right ankle and joints of right foot (principal)
CPT/HCPCS: 73610; 73630; 99283; 99284

== ENCOUNTER → 2024-09-27 11:27 | Outpatient (CLI) | payer OTHER, SELFPAY ==
--- NOTE | 2024-09-27 12:08 | EKG_ITS ---
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
[2024-09-27 12:53] LABS: BUN Creatinine Ratio 26.9 (6-22); Blood Urea Nitrogen 21 mg/dL (7-17); Calcium 9.8 mg/dL (8.4-10.2); Carbon Dioxide 30 mmol/L (22-32); Chloride 102 mmol/L (98-107); Estimated Glomerular Filt Rate > 60 mL/min (>60); Glucose 94 mg/dL (80-110); HEMOLYSIS < 15 (0-50); Potassium 3.9 mmol/L (3.4-5.1); Sodium 136 mmol/L (137-145)
[2024-09-27 13:03] LABS: Add Manual Diff / Slide Review NO; Basophils Absolute Auto 0 /uL (0-100); Basophils Percent Auto 0.8 % (0-2); Eosinophils Absolute Auto 100 /uL (0-450); Eosinophils Percent Auto 2.1 % (2-4); Hematocrit 34.9 % (36-46); Hemoglobin 11.8 g/dL (12.0-16.0); Lymphocytes Absolute Auto 1100 /uL (1100-4500); Lymphocytes Percent Auto 23.2 % (25-40); Mean Corpuscular HGB Conc 33.8 % (30-36); Mean Corpuscular Hemoglobin 31.2 PG (26-34); Mean Corpuscular Volume 92.4 fL (80-100); Monocytes Absolute Auto 400 /uL (0-900); Monocytes Percent Auto 7.7 % (3-14); Neutrophils Absolute Auto 3300 /uL (1500-7000); Neutrophils Percent Auto 66.2 % (50-75); Platelet Count 341 X10^3/uL (150-400); Red Blood Cell Count 3.78 X10^6/uL (4.0-5.2); Red Cell Distribution Width 13.7 % (11.6-14.8); White Blood Cell Count 4.9 X10^3/uL (4.5-11.0)
[2024-09-27 14:56] LABS: Vitamin D 25 Hydroxy (D3) < 12.8 ng/mL (30.0-100.0)
== END ==
PROVIDERS: PCP Family Medicine; Referring Provider Orthopaedic Surgery Adult Reconstructive Orthopaedic Surgery; Visit Provider Orthopaedic Surgery Adult Reconstructive Orthopaedic Surgery
DX: Z01.818 Encounter for other preprocedural examination (principal); E55.9 Vitamin D deficiency, unspecified; Z01.812 Encounter for preprocedural laboratory examination; R77.0 Abnormality of albumin
CPT/HCPCS: 36415; 80048; 82040; 82306; 83036; 84134; 85025; 93005; 93010

== ENCOUNTER → 2024-11-29 08:21 | Outpatient (CLI) | payer OTHER, SELFPAY ==
--- NOTE | 2024-11-29 08:22 | DI.MG.S_ITS ---
BILATERAL DIGITAL SCREENING MAMMOGRAM 3D/2D WITH CAD: 11/29/2024 CLINICAL: Routine screening. Family history of breast cancer. Comparison is made to exams dated: 10/18/2023 mammogram, 08/07/2022 mammogram, and 11/03/2020 mammogram - [facility]. The breasts are heterogeneously dense, which may obscure small masses (category c / 51-75% glandular tissue). Current study was also evaluated with a Computer Aided Detection (CAD) system. No significant masses, calcifications, or other findings are seen in either breast. There has been no significant interval change. IMPRESSION: NEGATIVE There is no mammographic evidence of malignancy. A 1 year screening mammogram is recommended. Based on Tyrer-Cuzick model (a risk assessment model), the patient's lifetime risk is 27.9% and her 10 year risk is 12.8%. If a patient has an elevated risk, a more comprehensive evaluation should be considered and/or a referral to a genetic counselor. The [place] [employer] [employer], [employer], and NCCN Guidelines advise the consideration of Breast MRI as an adjunct to screening mammography in patients whose Lifetime risk to develop breast cancer is 20% or higher. This exam was interpreted at Station ID: [id number]. NOTE: For mammograms, a report in lay terms will be sent to the patient. Approximately 15% of breast malignancies will not be visualized mammographically. In the management of a palpable breast mass, a negative mammogram must not discourage biopsy of a clinically suspicious lesion. Electronically Signed By: Quoc zelaya/fito:11/29/2024 18:21:27 letter sent: Normal Exam ACR BI-RADS Category 1: Negative
== END ==
PROVIDERS: PCP Family Medicine; Referring Provider Obstetrics & Gynecology; Visit Provider Obstetrics & Gynecology
DX: Z12.31 Encounter for screening mammogram for malignant neoplasm of breast (principal); Z80.3 Family history of malignant neoplasm of breast; R92.333 Mammographic heterogeneous density, bilateral breasts
CPT/HCPCS: 77063; 77067

== ENCOUNTER → 2025-03-26 14:49 | Outpatient (CLI) | payer OTHER, SELFPAY ==
--- NOTE | 2025-03-26 14:51 | DI.RAD.S_ITS ---
PROCEDURE: XR CHEST 2V INDICATIONS: Encounter for screening for malignant neoplasm of respirator TECHNIQUE: 2 views of the chest were acquired. COMPARISON: None. FINDINGS: Heart, mediastinum and pulmonary vascular: Heart is normal in size and configuration. Mediastinum is unremarkable. Pulmonary vascular is normal. Lungs: Lung volumes are elevated there is mild wall thickness central bronchi suggesting chronic bronchitis or asthma. Scattered tiny calcified granulomas noted. 2.5 cm vague density in the right apex Pleural spaces: Normal-no effusions or pneumothorax. Bones and soft tissues: Mild chronic wedging of all thoracic vertebral bodies likely reflects osteoporosis. Mild degenerative disc disease throughout the thoracic spine IMPRESSION: Chronic bronchitis or asthma. Extraordinarily vague 2.5 density in the right apex. Suggest patient return for lordotic and reversed lordotic views which should be tightly coned over the lung apices to ensure the absence of an underlying mass in this region Dictated by: Garrett Duque M.D. on 03/27/2025 at 10:05 Approved by: Garrett Duque M.D. on 03/27/2025 at 10:07
== END ==
PROVIDERS: PCP Family Medicine; Referring Provider Family Medicine; Visit Provider Family Medicine
DX: Z12.2 Encounter for screening for malignant neoplasm of respiratory organs (principal); R91.8 Other nonspecific abnormal finding of lung field; M51.34 Other intervertebral disc degeneration, thoracic region; M48.54XA Collapsed vertebra, not elsewhere classified, thoracic region, initial encounter for fracture
CPT/HCPCS: 71046

== ENCOUNTER → 2025-04-02 16:51 | Outpatient (CLI) | payer OTHER, SELFPAY ==
--- NOTE | 2025-04-02 16:56 | DI.RAD.S_ITS ---
PROCEDURE: XR CHEST 2V INDICATIONS: Z12.2 TECHNIQUE: 2 views of the chest were acquired. COMPARISON: [facility], , XR CHEST 2V, 03/26/2025, 14:54. FINDINGS: Surgical changes and devices: None. Lungs and pleura: Limited evaluation of the upper lung zones excluding the lung bases. The upper lung zones are clear. No pleural effusions or pneumothorax. Mediastinum: Visualized portions of the mediastinal contours are normal. Bones and chest wall: No suspicious bony abnormalities. Soft tissues appear unremarkable. IMPRESSION: Limited evaluation of the upper chest excluding the lung bases. No evidence of acute cardiopulmonary process. Dictated by: Alvarado Moncada M.D. on 04/04/2025 at 1:58 Approved by: Alvarado Moncada M.D. on 04/04/2025 at 2:00
== END ==
LOC: RAD 16:54
PROVIDERS: PCP Family Medicine; Referring Provider Family Medicine; Visit Provider Family Medicine
DX: Z12.2 Encounter for screening for malignant neoplasm of respiratory organs (principal)
CPT/HCPCS: 71046